=== PATIENT | female | born 1945 | race Caucasian/White ===

== ENCOUNTER → 2020-02-11 07:33 | Outpatient (BNVA) | payer MEDICARE, OTHER, SELFPAY | PROVIDERS: Family Provider Pediatrics; Visit Provider Nurse Practitioner | DX: F33.41 Major depressive disorder, recurrent, in partial remission (principal); F41.1 Generalized anxiety disorder | CPT/HCPCS: 99213 ==

== ENCOUNTER → 2020-08-01 08:03 | Outpatient (BNVA) | payer MEDICARE, OTHER, SELFPAY | PROVIDERS: Family Provider Pediatrics; Visit Provider Nurse Practitioner | DX: F33.41 Major depressive disorder, recurrent, in partial remission (principal); F41.1 Generalized anxiety disorder | CPT/HCPCS: 99213 ==

== ENCOUNTER → 2021-01-26 08:10 | Outpatient (BNVA) | payer MEDICARE, OTHER, SELFPAY | PROVIDERS: Family Provider Pediatrics; Visit Provider Nurse Practitioner | DX: F33.41 Major depressive disorder, recurrent, in partial remission (principal); F41.1 Generalized anxiety disorder | CPT/HCPCS: 99214 ==

== ENCOUNTER → 2021-07-12 07:35 | Outpatient (BNVA) | payer MEDICARE, OTHER, SELFPAY | PROVIDERS: Family Provider Pediatrics; Visit Provider Nurse Practitioner | DX: F41.1 Generalized anxiety disorder (principal); F33.41 Major depressive disorder, recurrent, in partial remission | CPT/HCPCS: 99214 ==

== ENCOUNTER → 2021-08-28 08:41 | Outpatient (BNVA) | payer MEDICARE, OTHER, SELFPAY | PROVIDERS: Family Provider Pediatrics; Visit Provider Nurse Practitioner | DX: F41.1 Generalized anxiety disorder (principal); F33.41 Major depressive disorder, recurrent, in partial remission | CPT/HCPCS: 99214 ==

== ENCOUNTER → 2022-02-05 10:47 | Outpatient (BNVA) | payer MEDICARE, OTHER, SELFPAY | PROVIDERS: Family Provider Pediatrics; Visit Provider Nurse Practitioner | DX: F41.1 Generalized anxiety disorder (principal); F33.41 Major depressive disorder, recurrent, in partial remission | CPT/HCPCS: 99214 ==

== ENCOUNTER → 2023-10-01 11:58 | Outpatient (BNVA) | payer MEDICARE, OTHER, SELFPAY | PROVIDERS: Family Provider Pediatrics; Visit Provider Nurse Practitioner | DX: Z79.899 Other long term (current) drug therapy (principal); F41.1 Generalized anxiety disorder; F33.41 Major depressive disorder, recurrent, in partial remission | CPT/HCPCS: 80061; 83036 ==